=== PATIENT | female | born 1970 | race Caucasian/White ===

== ENCOUNTER 2020-07-13 10:49 | Outpatient (CLI) | payer OTHER ==
[~2020-07-13 10:49] MED LIST: ALEGRA PO; AMBIEN10 MG PO; CIPRO750 MG PO; Colace 100MG PO; Fioricet Tablet PO; GRALISE600 MG PO; MOBIC7.5 M1 PO; PERCOCET 5/3251 TAB PO; PRISTIQ ER50 MG PO
== END 2020-07-13 10:55 | disposition home or self-care (01) ==
LOC: SONOGRAMA 10:49
PROVIDERS: ATTEND Pathology Anatomic Pathology & Clinical Pathology
DX: D34 Benign neoplasm of thyroid gland (principal); E04.8 Other specified nontoxic goiter

== ENCOUNTER 2024-06-12 10:00 | Inpatient (IN) | payer OTHER ==
[~2024-06-12] VITALS: Ht 182.9 cm; Wt 103.0 kg
[2024-06-14] MEDS ORDERED: CYMBALTA60 MG PO (09:37)
[2024-06-14] MEDS ORDERED: SYNTHROID50 MCG PO (09:38)
[2024-06-14] MEDS ORDERED: TOPROL XL25 M1 PO (09:38)
[2024-06-14] MEDS ORDERED: PROTONIX40 MG PO (09:38)
[2024-06-14] MEDS ORDERED: LEVALBUTEROL TA15 GM IH (09:39)
[2024-06-14] MEDS ORDERED: VYZULTA5 ML OP (09:40)
[2024-06-14] MEDS ORDERED: TRAZODONE HCL5 GM (09:41)
[2024-06-14] MEDS ORDERED: CLONAZEPAM0.5 MG PO (09:42)
[2024-06-17] MEDS ORDERED: MORPHINE SULFATE 4 MG/ML VIAL IV ONE ×3 (10:20→19:40)
[2024-06-17] MEDS ORDERED: ENALAPRILAT DIHYDRATE 1.25 MG/ML VIAL IV PRN (11:45)
[2024-06-17] MEDS ORDERED: PROMETHAZINE HCL 50 MG/ML AMPUL IM PRN (11:45)
[2024-06-17] MEDS ORDERED: 0.9 % SODIUM CHLORIDE 1,000 ML IV SCH (11:45)
[2024-06-17] MEDS ORDERED: PERCOCET 5-3251 EACH PO (11:57)
[2024-06-17] MEDS ORDERED: AMOX-CLAV 200-1 EACH PO (11:58)
[2024-06-17] MEDS ORDERED: MEDROLPACK PO (11:58)
[2024-06-17] MEDS ORDERED: ZOFRAN8 MG PO (11:58)
[2024-06-17] MEDS ORDERED: COLACE100 MG PO (11:59)
[2024-06-17] MEDS ORDERED: DOCUSATE SODIUM 100MG CAP PO SCH (13:00)
[2024-06-17] MEDS ORDERED: MORPHINE SULFATE 4 MG,MORPHINE SULFATE 2 MG IV SCH (13:00)
[2024-06-17] MEDS ORDERED: ACETAMINOPHEN 500 MG GEL..CAP PO SCH (14:00)
[2024-06-17] MEDS ORDERED: VANCOMYCIN HCL 1,000 MG VIAL ONE ×3 (14:27→20:12)
[2024-06-17] MEDS ORDERED: CEFAZOLIN SODIUM 1,000 MG VIAL ONE (14:27)
[2024-06-17] MEDS ORDERED: METHYLPREDNISOLONE ACETATE 80 MG/ML VIAL ONE (15:38)
[2024-06-17] MEDS ORDERED: METHYLPREDNISOLONE SOD SUCC 125 MG VIAL ONE (15:39)
[2024-06-17] MEDS ORDERED: METHYLPREDNISOLONE SOD SUCC 125 MG VIAL IV SCH (17:00)
[2024-06-17] MEDS ORDERED: CEFAZOLIN SODIUM 1,000 MG in 0.9 % SODIUM CHLORIDE 50 ML IV SCH (17:00)
[2024-06-17] MEDS ORDERED: FAMOtidine 20 MG TABLET PO SCH (17:00)
[2024-06-17] MEDS ORDERED: AMOX-CLAV 875-1 EACH PO (19:00)
[2024-06-17] MEDS ORDERED: ENALAPRILAT DIHYDRATE 1.25 MG/ML VIAL IV ONE ×2 (20:40→20:44)
[2024-06-17] MEDS ORDERED: VANCOMYCIN HCL 1,000 MG VIAL IV SCH (21:00)
[2024-06-17] MEDS ORDERED: GABAPENTIN 800 MG TABLET PO SCH (21:00)
[2024-06-17] MEDS ORDERED: TRAZODONE HCL 50 MG TABLET PO SCH (21:00)
[2024-06-17] MEDS ORDERED: LABETALOL HCL 20MG/4ML SYRINGE IV ONE (23:45)
[2024-06-18] MEDS ORDERED: SODIUM CHLORIDE 0.45 % 1,000 ML IV SCH
[2024-06-18] MEDS ORDERED: CEFAZOLIN SODIUM 1,000 MG VIAL ONE (00:44)
[2024-06-18] MEDS ORDERED: METHYLPREDNISOLONE SOD SUCC 125 MG VIAL ONE (00:44)
[2024-06-18] MEDS ORDERED: MORPHINE SULFATE 4 MG/ML VIAL IV ONE (01:00)
[2024-06-18] MEDS ORDERED: ACETAMINOPHEN 500 MG GEL..CAP PO ONE (02:08)
[2024-06-18 03:07] VITALS: BP 155/75; O2SAT 100
[2024-06-18] MEDS ORDERED: LEVOTHYROXINE SODIUM 50 MCG TABLET PO SCH (06:00)
[2024-06-18] MEDS ORDERED: OxyCODONE HCL/APAP UD (PERCOCET) PO PRN (06:01)
[2024-06-18 07:44] LABS: HEMATOCRIT 40.2 % (36.0-45.00); HEMOGLOBIN 13.3 g/dL (12.0-15.00); MEAN CELL VOLUME 86.7 fL (80.00-100.00); MEAN CORPUSCULAR HEMOGLOBIN 28.7 pg (27.00-32.0); MEAN CORPUSCULAR HGB CONC 33.1 g/dl (32.0-36.0); PLATELET COUNT 220 K/uL (150-450); RED BLOOD COUNT 4.63 M/uL (4.00-6.00); RED CELL DISTRIBUTION WIDTH 13.6 % (11.5-14.5)
[2024-06-18] MEDS ORDERED: VANCOMYCIN HCL 1,000 MG VIAL ONE ×2 (08:01→16:20)
[2024-06-18 08:19] LABS: CALCIUM 8.9 mg/dL (8.5-10.1); CREATININE SERUM 0.73 mg/dL (0.55-1.02); GFR 82.77; POTASSIUM 5.42 mEq/L (3.5-5.1)
[2024-06-18] MEDS ORDERED: TAMSULOSIN HCL 0.4 MG CAP PO SCH (09:00)
[2024-06-18] MEDS ORDERED: METOPROLOL SUCCINATE 50 MG TAB.SR.24H PO SCH (09:00)
[2024-06-18] MEDS ORDERED: Duloxetine HCl 60 MG CAPSULE.DR PO SCH (09:00)
[2024-06-18 09:40] VITALS: BP 149/64; O2SAT 97
[2024-06-18 16:45] VITALS: BP 164/71; O2SAT 96
[2024-06-19 03:34] VITALS: BP 146/68
[2024-06-19 08:00] VITALS: BP 160/63
[2024-06-19 16:00] VITALS: BP 174/67; O2SAT 96
== END 2024-06-19 19:25 | disposition home or self-care (01) | DRG 402 ==
LOC: SURH 06-17 08:36 → O/R 06-17 08:36 → SURH 06-17 10:45
PROVIDERS: ADMIT Orthopaedic Surgery Orthopaedic Surgery of the Spine; ATTEND Orthopaedic Surgery Orthopaedic Surgery of the Spine
PROC: 0SG0071 Fusion of Lumbar Vertebral Joint with Autologous Tissue Substitute, Posterior Approach, Posterior Column, Open Approach (ICD-10-PCS; 2024-06-17)
PROC: 0ST20ZZ Resection of Lumbar Vertebral Disc, Open Approach (ICD-10-PCS; 2024-06-17)
PROC: 0QB30ZZ Excision of Left Pelvic Bone, Open Approach (ICD-10-PCS; 2024-06-17)
PROC: 07DR0ZZ Extraction of Iliac Bone Marrow, Open Approach (ICD-10-PCS; 2024-06-17)
PROC: 4A1104G Monitoring of Peripheral Nervous Electrical Activity, Intraoperative, Open Approach (ICD-10-PCS; 2024-06-17)
PROC: XRGB0R7 Fusion of Lumbar Vertebral Joint using Custom-Made Anatomically Designed Interbody Fusion Device, Open Approach, New Technology Group 7 (ICD-10-PCS; principal; 2024-06-17 14:00)
DX: M48.062 Spinal stenosis, lumbar region with neurogenic claudication (principal); M43.16 Spondylolisthesis, lumbar region; I10 Essential (primary) hypertension; E03.9 Hypothyroidism, unspecified; G47.33 Obstructive sleep apnea (adult) (pediatric)